=== PATIENT | female | born 1950 | race Caucasian/White ===

== ENCOUNTER 2016-11-25 18:39 | Inpatient (IN) | payer BC, OTHER ==
[~2016-11-25] VITALS: Ht 152.4 cm; Wt 100.6 kg
[~2016-11-25 18:39] MED LIST: ASPIRIN81 M2 PO; ATIVAN0.5 MG PO; ATORVASTATIN CA20 MG PO; ATORVASTATIN CA40 MG PO; CYANOCOBALAM1000 MCG PO; CYMBALTA60 MG PO; DITROPAN XL10 MG PO; FLEXERIL5 MG PO; GLUCOPHAGE1000 MG; KETOCONAZOLE60 GM TP; LANTUS 10100 UNITS/ SC; LANTUS 3 M100 UNITS1 SC; LIPITOR10 MG; LISINOPRIL5 MG PO; LORAZEPAM PO; LORAZEPAM0.5 MG PO; LOW DOSE ASPIRI81 M1 PO; METFORMIN HCL1000 MG PO; NOHOMEMEDS; NOVOLOG 10100 UNITS/ SC; NOVOLOG PE100 UNITS/ SC; OXYBUTYNIN CHLO10 MG PO; PANTOPRAZOLE SO20 MG PO; PANTOPRAZOLE SO40 MG PO; PERCOCET 5/31 TABLET PO; RANITIDINE HCL150 M1 PO; REGLAN10 MG PO; SPIRIVA1 INHALATI IH; VITAMIN D-32000 UNI1 PO; VITAMIN D-32000 UNIT PO; ZOFRAN4 MG PO
[2016-11-25 19:14] LABS: MCH 29.7 PG (29.0-34.0); MCHC 35.4 G/DL (30.0-36.0); MCV 83.9 FL (83-99); MEAN PLAT.VOLUME 10.4 uM^3 (9.5-12.4); PLATELET COUNT 225 K/uL (156-360); RBC DIS.WIDTH-CV 12.4 % (11.8-14.6); RBC DIS.WIDTH-SD 37.5 % (39-53); RED BLOOD COUNT 5.72 M/uL (3.80-5.20); WHITE BLOOD COUNT 11.8 K/uL (4.1-10.2)
[2016-11-25 19:24] LABS: CHLORIDE 98 mEq/L (99-109); POTASSIUM 4.1 mEq/L (3.7-5.4); SODIUM 134 mEq/L (136-147)
[2016-11-25 19:26] LABS: GLUCOSE 375 mg/dL (70-99)
[2016-11-25 19:27] LABS: ANION GAP 13 MEQ/L (2-14)
[2016-11-25 19:28] LABS: TOTAL BILIRUBIN 0.9 mg/dL (0.0-1.0)
[2016-11-25 19:29] LABS: ALKALINE PHOSPHATASE 171 IU/L (3-129)
[2016-11-25 19:30] LABS: GFR ESTIMATE (CALCULATED) > 59 mL/min/
[2016-11-25 19:31] LABS: UREA NITROGEN (BUN) 15 mg/dL (9-23)
[2016-11-25 20:55] LABS: TROP-I INTERPRETATION NEGATIVE; TROPONIN-I < 0.01 ng/mL (0.0-0.30)
[2016-11-25 21:03] LABS: ADD MIUA? YES; BILIRUBIN NEGATIVE; BLOOD LARGE; COLOR DK YELLOW ((YELLOW)); GLUCOSE (STRIP) >=1000; KETONES 15; LEUKOCYTES NEGATIVE; NITRITE POSITIVE; PROTEIN (STRIP) 30; SPECIFIC GRAVITY 1.031 (1.000-1.030); UROBILINOGEN 0.2 MG/DL (0.2-1.0)
[2016-11-25 21:28] LABS: EPITHELIAL CELLS 1+; RED BLOOD CELLS TNTC /HPF (0-5); WHITE BLOOD CELLS 0-5 /HPF (0-5)
[2016-11-25 21:29] LABS: BACTERIA 4+; CASTS NONE SEEN /LPF; CRYSTALS NONE SEEN; MUCUS NONE SEEN; UCUL ADDED? YES
[2016-11-25] MEDS ORDERED: ATORVASTATIN CA80 MG PO (23:28)
[2016-11-25] MEDS ORDERED: NOVOLOG PE100 UNITS/ SC (23:29)
[2016-11-25] MEDS ORDERED: DICYCLOMINE HCL20 MG PO (23:29)
[2016-11-25] MEDS ORDERED: PROTONIX40 MG PO (23:30)
[2016-11-25] MEDS ORDERED: OXYBUTYNIN CHLO10 MG PO (23:30)
[2016-11-25] MEDS ORDERED: LISINOPRIL5 MG PO (23:30)
[2016-11-25] MEDS ORDERED: METFORMIN HCL1000 MG PO (23:30)
[2016-11-25] MEDS ORDERED: PRIMIDONE50 MG PO (23:31)
[2016-11-25] MEDS ORDERED: KENALOG,ARISTOC15 G2 TP (23:32)
[2016-11-25] MEDS ORDERED: LANTUS 10100 UNITS/ SC (23:58)
[2016-11-26] VITALS (7 sets, daily range): BP systolic 101–118; BP diastolic 59–77
[2016-11-26 01:02] LABS: AMYLASE 23 IU/L (1-118)
[2016-11-26 01:11] LABS: LIPASE 21 U/L (1.0-51.0)
[2016-11-26 06:20] LABS: EOSINOPHIL (%) 0 % (0-5); HEMATOCRIT 46.5 % (36.0-46.0); IMMATURE GRANULOCYTE (%) 0.2 % (0.0-0.7); MEAN PLAT.VOLUME 11.1 uM^3 (9.5-12.4); MONOCYTE COUNT 0.4 K/uL (0-0.8); NEUTROPHIL (%) 89.2 % (45-76); NEUTROPHIL COUNT 11.9 K/uL (1.8-6.4); PLATELET COUNT 197 K/uL (156-360); RBC DIS.WIDTH-CV 12.6 % (11.8-14.6); RBC DIS.WIDTH-SD 40.3 % (39-53); RED BLOOD COUNT 5.26 M/uL (3.80-5.20); WHITE BLOOD COUNT 13.3 K/uL (4.1-10.2)
[2016-11-26 06:35] LABS: MCV 88.4 FL (83-99)
[2016-11-26 06:41] LABS: ALKALINE PHOSPHATASE 159 IU/L (3-129); ANION GAP 12 MEQ/L (2-14); CHLORIDE 99 MEQ/L (99-109); GFR ESTIMATE (CALCULATED) > 59 mL/min/; POTASSIUM 4.8 MEQ/L (3.7-5.4); SAMPLE HEMOLYSIS CHECK 0; SAMPLE ICTERIC CHECK 0; SAMPLE LIPEMIA CHECK 0; SODIUM 134 MEQ/L (136-147)
[2016-11-26 06:50] LABS: GLUCOSE 444 mg/dL (70-99)
[2016-11-26 06:53] LABS: UREA NITROGEN (BUN) 16 mg/dL (9-23)
[2016-11-26 09:56] LABS: POINT-OF-CARE METER ID UU13113807; POINT-OF-CARE USER ID 606021404
[2016-11-26 17:08] LABS: POINT-OF-CARE METER ID UU13113807; POINT-OF-CARE USER ID 606021404
[2016-11-26 21:18] LABS: POINT-OF-CARE METER ID UU13113807
[2016-11-27 03:20] LABS: POINT-OF-CARE METER ID UU13113807
[2016-11-27 05:43] VITALS: BP 103/61
[2016-11-27 07:01] VITALS: BP 98/58
[2016-11-27 07:08] LABS: HEMATOCRIT 41.8 % (36.0-46.0); MCH 30.8 PG (29.0-34.0); MCHC 34.9 G/DL (30.0-36.0); MCV 88.2 FL (83-99); MEAN PLAT.VOLUME 11.6 uM^3 (9.5-12.4); PLATELET COUNT 184 K/uL (156-360); RBC DIS.WIDTH-CV 12.4 % (11.8-14.6); RED BLOOD COUNT 4.74 M/uL (3.80-5.20); WHITE BLOOD COUNT 13.1 K/uL (4.1-10.2)
[2016-11-27 07:34] LABS: ANION GAP 10 MEQ/L (2-14); CHLORIDE 102 MEQ/L (99-109); POTASSIUM 4.2 MEQ/L (3.7-5.4); SAMPLE HEMOLYSIS CHECK 0; SAMPLE ICTERIC CHECK 0; SAMPLE LIPEMIA CHECK 0; SODIUM 133 MEQ/L (136-147)
[2016-11-27 07:39] LABS: GFR ESTIMATE (CALCULATED) > 59 mL/min/; GLUCOSE 242 mg/dL (70-99); UREA NITROGEN (BUN) 20 mg/dL (9-23)
[2016-11-27 10:21] LABS: TROP-I INTERPRETATION NEGATIVE; TROPONIN-I < 0.01 ng/mL (0.0-0.30)
[2016-11-27 12:32] LABS: INTER. NORMALIZED RATIO 1.1; PROTHROMBIN TIME 10.9 (9.2-11.2)
[2016-11-27 13:05] LABS: POINT-OF-CARE METER ID UU13113807
[2016-11-27 15:36] VITALS: BP 94/57
[2016-11-27 16:41] LABS: POINT-OF-CARE METER ID UU13113807
[2016-11-27 22:50] VITALS: BP 117/65
[2016-11-28 04:19] LABS: POINT-OF-CARE METER ID UU14149396
[2016-11-28 07:38] LABS: POINT-OF-CARE METER ID UU14149396
[2016-11-28 07:47] VITALS: BP 112/72
[2016-11-28 11:25] LABS: POINT-OF-CARE METER ID UU14149396
[2016-11-28 15:37] VITALS: BP 119/67
[2016-11-28 19:23] VITALS: BP 126/59
[2016-11-29 00:20] VITALS: BP 149/77
[2016-11-29 04:00] VITALS: BP 140/75
[2016-11-29 07:26] VITALS: BP 122/62
[2016-11-29 15:41] VITALS: BP 132/75
[2016-11-29 23:24] VITALS: BP 146/74
[2016-11-30 08:00] VITALS: BP 141/65
[2016-11-30 09:22] VITALS: BP 135/75
[2016-11-30 09:23] VITALS: BP 133/75
[2016-11-30 09:24] VITALS: BP 108/56
[2016-11-30 09:24] LABS: HEMATOCRIT 47.6 % (36.0-46.0); MCH 29.7 PG (29.0-34.0); MCHC 33.6 G/DL (30.0-36.0); MCV 88.3 FL (83-99); MEAN PLAT.VOLUME 11.4 uM^3 (9.5-12.4); PLATELET COUNT 199 K/uL (156-360); RBC DIS.WIDTH-CV 12.7 % (11.8-14.6); RBC DIS.WIDTH-SD 40.4 % (39-53); RED BLOOD COUNT 5.39 M/uL (3.80-5.20)
[2016-11-30 09:27] LABS: D-DIMER ELISA 0.51 mg/L FEU (< 0.57)
[2016-11-30 09:28] LABS: WHITE BLOOD COUNT 9.1 K/uL (4.1-10.2)
[2016-11-30 09:53] LABS: ALKALINE PHOSPHATASE 130 IU/L (3-129); ANION GAP 8 MEQ/L (2-14); CHLORIDE 97 MEQ/L (99-109); GFR ESTIMATE (CALCULATED) > 59 mL/min/; GLUCOSE 295 mg/dL (70-99); POTASSIUM 4.5 MEQ/L (3.7-5.4); SAMPLE HEMOLYSIS CHECK 0; SAMPLE ICTERIC CHECK 0; SAMPLE LIPEMIA CHECK 0; SODIUM 132 MEQ/L (136-147); UREA NITROGEN (BUN) 18 mg/dL (9-23)
[2016-11-30 09:54] LABS: TOTAL BILIRUBIN 0.5 MG/DL (0.0-1.0)
[2016-11-30 10:18] LABS: POINT-OF-CARE METER ID UU13113807
[2016-11-30 10:45] LABS: POINT-OF-CARE METER ID UU13113807; POINT-OF-CARE USER ID 606021404
[2016-11-30] MEDS ORDERED: NICOTINE PATCH1 EAC2 TD (14:04)
[2016-11-30] MEDS ORDERED: ADVAIR 250/501 DISK IH (14:07)
[2016-11-30] MEDS ORDERED: VENTOLIN HFA18 GM IH (14:07)
[2016-11-30] MEDS ORDERED: SPIRIVA1 INHALATI IH (14:07)
[2016-11-30] MEDS ORDERED: CEFTIN500 MG PO (14:13)
[2016-11-30] MEDS ORDERED: PREDNISONE10 MG PO (14:14)
[2016-11-30 16:36] VITALS: BP 148/74
== END 2016-11-30 16:57 | disposition home or self-care (01) | DRG 191 ==
LOC: EME 18:39 → EDOF 11-26 00:03 → 2EAST 11-26 00:03 → 4SOUTH 11-26 00:03 → 2EAST 11-28 15:00
PROVIDERS: Hospitalist; Internal Medicine; Physician Assistant Medical; Radiology Diagnostic Radiology
DX: J44.1 Chronic obstructive pulmonary disease with (acute) exacerbation (principal); N30.00 Acute cystitis without hematuria; E87.1 Hypo-osmolality and hyponatremia; Z68.41 Body mass index [BMI] 40.0-44.9, adult; R10.9 Unspecified abdominal pain; R09.02 Hypoxemia; R30.0 Dysuria; E11.65 Type 2 diabetes mellitus with hyperglycemia; E66.01 Morbid (severe) obesity due to excess calories; Z71.6 Tobacco abuse counseling; K59.00 Constipation, unspecified; G89.29 Other chronic pain; I10 Essential (primary) hypertension; E78.5 Hyperlipidemia, unspecified; K21.9 Gastro-esophageal reflux disease without esophagitis; F17.210 Nicotine dependence, cigarettes, uncomplicated; E78.00 Pure hypercholesterolemia, unspecified; G47.33 Obstructive sleep apnea (adult) (pediatric); R91.1 Solitary pulmonary nodule; B96.20 Unspecified Escherichia coli [E. coli] as the cause of diseases classified elsewhere; F32.9 Major depressive disorder, single episode, unspecified; Z79.4 Long term (current) use of insulin
CPT/HCPCS: 70450; 71010; 71250; 74177; 80048; 80053; 81003; 82150; 82565; 82948; 83690; 84484; 84520; 85025; 85027; 85379; 85610; 85730; 87077; 87086; 87186; 93005; 93970; 94640; 94640 76; 94760; 94799; 99202; 99281; 99285; J0696; J1644; J1815; J2270; J2405; J2920; J2930; J7030; J7050; S0028

== ENCOUNTER → 2016-12-28 | Outpatient (CLI) | payer BC, OTHER ==
[~2016-12-28] MED LIST changes: +ADVAIR 250/501 DISK IH; +ATORVASTATIN CA80 MG PO; +AZITHROMYCIN500 M1 PO; +BENTYL20 MG PO; +CEFTIN500 MG PO; +DELTASONE20 M1 PO; +DICYCLOMINE HCL20 MG PO; +IPRATR-ALBUTEROL3 ML IH; +KENALOG,ARISTOC15 G2 TP; +LIPITOR80 MG PO; +MYSOLINE50 MG PO; +NICOTINE PATCH1 EAC2 TD; +PREDNISONE10 MG PO; +PREDNISONE20 MG PO; +PRIMIDONE50 MG PO; +PROTONIX40 MG PO; +SIMVASTATIN20 MG PO; +VENTOLIN HFA18 GM IH; +ZESTRIL5 MG PO
[2016-12-28 09:32] LABS: PROTHROMBIN TIME 10.6 (9.2-11.2); PTT 23.9 (25-32)
[2016-12-28 09:55] LABS: HEMATOCRIT 46.9 % (36.0-46.0); MCH 29.7 PG (29.0-34.0); MCHC 35.2 G/DL (30.0-36.0); MCV 84.5 FL (83-99); PLATELET COUNT 247 K/uL (156-360); RBC DIS.WIDTH-CV 12.6 % (11.8-14.6); RED BLOOD COUNT 5.55 M/uL (3.80-5.20)
[2016-12-28 09:56] LABS: WHITE BLOOD COUNT 12.8 K/uL (4.1-10.2)
[2016-12-28 14:01] LABS: POINT-OF-CARE METER ID UU13113819
== END | disposition home or self-care (01) ==
LOC: OPR 08:39 → EDSTATUS 09:00 → OPR 09:00
PROVIDERS: Internal Medicine Pulmonary Disease; Radiology Diagnostic Radiology
PROC: 0BBD3ZX Excision of Right Middle Lung Lobe, Percutaneous Approach, Diagnostic (ICD-10-PCS; principal; 2016-12-28)
DX: C34.2 Malignant neoplasm of middle lobe, bronchus or lung (principal); K21.9 Gastro-esophageal reflux disease without esophagitis; E11.9 Type 2 diabetes mellitus without complications; G47.30 Sleep apnea, unspecified
CPT/HCPCS: 71010; 77012; 82948; 85027; 85610; 85730; 88305; 88341 TC; 88342 TC; J3010

== ENCOUNTER 2017-01-24 15:44 | Emergency (ER) | payer BC, OTHER ==
[~2017-01-24] VITALS: Ht 152.4 cm; Wt 94.3 kg
[2017-01-24 17:02] LABS: HEMATOCRIT 45.9 % (36.0-46.0); MCH 29.5 PG (29.0-34.0); MCV 86.9 FL (83-99); MEAN PLAT.VOLUME 10.9 uM^3 (9.5-12.4); RBC DIS.WIDTH-CV 12.3 % (11.8-14.6); RBC DIS.WIDTH-SD 39.1 % (39-53); RED BLOOD COUNT 5.28 M/uL (3.80-5.20); WHITE BLOOD COUNT 6.4 K/uL (4.1-10.2)
[2017-01-24 17:03] LABS: PLATELET COUNT 243 K/uL (156-360)
[2017-01-24 17:05] LABS: CHLORIDE 96 mEq/L (99-109); POTASSIUM 3.9 mEq/L (3.7-5.4); SODIUM 132 mEq/L (136-147)
[2017-01-24 17:08] LABS: ANION GAP 14 MEQ/L (2-14)
[2017-01-24 17:09] LABS: GLUCOSE 546 mg/dL (70-99)
[2017-01-24] MEDS ORDERED: ESCITALOPRAM OX10 MG PO (17:09)
[2017-01-24 17:11] LABS: GFR ESTIMATE (CALCULATED) 59 mL/min/
[2017-01-24] MEDS ORDERED: DICYCLOMINE HCL20 MG PO (17:11)
[2017-01-24 17:12] LABS: UREA NITROGEN (BUN) 14 mg/dL (9-23)
[2017-01-24] MEDS ORDERED: LANTUS 3 M100 UNITS1 SC (17:12)
[2017-01-24 17:20] LABS: CARBON DIOXIDE (BICARBONATE) 27.4 MEQ/L (20-31)
[2017-01-24 17:23] LABS: ADD MIUA? YES; BILIRUBIN NEGATIVE; BLOOD SMALL; COLOR STRAW ((YELLOW)); GLUCOSE (STRIP) >=500; KETONES NEGATIVE; LEUKOCYTES TRACE; NITRITE NEGATIVE; PROTEIN (STRIP) NEGATIVE; UROBILINOGEN 0.2 MG/DL (0.2-1.0)
[2017-01-24 17:30] LABS: BACTERIA RARE /HPF; EPITHELIAL CELLS RARE /HPF; MUCUS TRACE /LPF; RED BLOOD CELLS 0-5 /HPF (0-5); UCUL ADDED? NO
[2017-01-24 18:37] LABS: POINT-OF-CARE METER ID UU13113702
[2017-01-24 19:25] VITALS: BP 128/82
[2017-01-25 13:27] LABS: POINT-OF-CARE METER ID UU13113778
== END 2017-01-24 19:25 | disposition home or self-care (01) ==
LOC: EME 15:44
PROVIDERS: Emergency Medicine
DX: E11.65 Type 2 diabetes mellitus with hyperglycemia (principal); J44.9 Chronic obstructive pulmonary disease, unspecified; C34.90 Malignant neoplasm of unspecified part of unspecified bronchus or lung; J45.909 Unspecified asthma, uncomplicated; E78.5 Hyperlipidemia, unspecified; I10 Essential (primary) hypertension; K21.9 Gastro-esophageal reflux disease without esophagitis; Z87.891 Personal history of nicotine dependence; Z79.4 Long term (current) use of insulin; Z79.84 Long term (current) use of oral hypoglycemic drugs
CPT/HCPCS: 71020; 80048; 81003; 82803; 82948; 85027; 93005; 99281; 99285; J7030

== ENCOUNTER 2017-02-12 09:05 | Day surgery (SDC) | payer BC, OTHER ==
[~2017-02-12] VITALS: Ht 152.4 cm; Wt 92.5 kg
[~2017-02-12 09:05] MED LIST changes: +COMBIVENT RESPIM4 GM IH; +ESCITALOPRAM OX10 MG PO; +LEXAPRO10 MG PO; +PROVENTIL,2.5 MG/3 M IH
[2017-02-12 09:38] LABS: EOSINOPHIL (%) 1.3 % (0-5); EOSINOPHIL COUNT 0.1 K/uL (0-0.3); HEMATOCRIT 46.5 % (36.0-46.0); IMMATURE GRANULOCYTE (%) 0.3 % (0.0-0.7); LYMPHOCYTE COUNT 2.5 K/uL (1.0-2.8); MCH 29.7 PG (29.0-34.0); MCHC 34.4 G/DL (30.0-36.0); MCV 86.4 FL (83-99); MEAN PLAT.VOLUME 10.1 uM^3 (9.5-12.4); MONOCYTE (%) 4.6 % (3-12); MONOCYTE COUNT 0.3 K/uL (0-0.8); NEUTROPHIL (%) 57.4 % (45-76); PLATELET COUNT 261 K/uL (156-360); RBC DIS.WIDTH-CV 12.5 % (11.8-14.6); RBC DIS.WIDTH-SD 39.1 % (39-53); RED BLOOD COUNT 5.38 M/uL (3.80-5.20); WHITE BLOOD COUNT 6.9 K/uL (4.1-10.2)
[2017-02-12 09:46] VITALS: BP 121/76
[2017-02-12 09:53] LABS: INTER. NORMALIZED RATIO 0.9; PROTHROMBIN TIME 9.6 (9.2-11.2)
[2017-02-12 10:53] LABS: ANION GAP 12 MEQ/L (2-14); CHLORIDE 99 MEQ/L (99-109); POTASSIUM 4.6 MEQ/L (3.7-5.4); SAMPLE HEMOLYSIS CHECK 0; SAMPLE ICTERIC CHECK 0; SAMPLE LIPEMIA CHECK 1; SODIUM 134 MEQ/L (136-147); TOTAL BILIRUBIN 0.5 MG/DL (0.0-1.0)
[2017-02-12 11:11] LABS: ALKALINE PHOSPHATASE 161 IU/L (3-129); GFR ESTIMATE (CALCULATED) > 59 mL/min/; UREA NITROGEN (BUN) 16 mg/dL (9-23)
[2017-02-12 11:14] LABS: GLUCOSE 458 mg/dL (70-99)
[2017-02-12] MEDS ORDERED: NORCO 5/3251 TABLET PO (13:24)
[2017-02-12] MEDS ORDERED: COLACE100 MG PO (13:24)
[2017-02-12 13:40] LABS: POINT-OF-CARE METER ID UU13113675
[2017-02-12 14:42] LABS: POINT-OF-CARE METER ID UU13113675
[2017-02-12 14:50] VITALS: BP 128/71
[2017-02-12 15:45] VITALS: BP 131/84
== END 2017-02-12 16:17 | disposition home or self-care (01) ==
LOC: SDC 09:05 → EDSTATUS 14:25 → 2SOUTH 14:25 → SDC 14:26
PROVIDERS: Thoracic Surgery (Cardiothoracic Vascular Surgery)
PROC: 07B74ZX Excision of Thorax Lymphatic, Percutaneous Endoscopic Approach, Diagnostic (ICD-10-PCS; principal; 2017-02-12)
DX: C34.2 Malignant neoplasm of middle lobe, bronchus or lung (principal); J44.9 Chronic obstructive pulmonary disease, unspecified; Z99.81 Dependence on supplemental oxygen; Z87.891 Personal history of nicotine dependence; I10 Essential (primary) hypertension; G47.33 Obstructive sleep apnea (adult) (pediatric); E78.5 Hyperlipidemia, unspecified; K21.9 Gastro-esophageal reflux disease without esophagitis; E11.9 Type 2 diabetes mellitus without complications; Z80.0 Family history of malignant neoplasm of digestive organs; Z82.3 Family history of stroke; Z83.3 Family history of diabetes mellitus; Z82.49 Family history of ischemic heart disease and other diseases of the circulatory system; Z79.82 Long term (current) use of aspirin; Z79.4 Long term (current) use of insulin
CPT/HCPCS: 80053; 82948; 85025; 85610; 86850; 86900; 86901; 88305; 94640; J0131; J0330; J0690; J2250; J2405; J2710; J3010

== ENCOUNTER 2017-02-26 12:22 | Inpatient (IN) | payer BC, OTHER ==
[~2017-02-26] VITALS: Ht 152.4 cm; Wt 92.7 kg
[~2017-02-26 12:22] MED LIST changes: +COLACE100 MG PO; +NORCO 5/3251 TABLET PO
[2017-02-26 12:56] LABS: MCH 29.8 PG (29.0-34.0); MCHC 33.5 G/DL (30.0-36.0); MEAN PLAT.VOLUME 10.2 uM^3 (9.5-12.4); PLATELET COUNT 302 K/uL (156-360); RBC DIS.WIDTH-CV 12.2 % (11.8-14.6); RBC DIS.WIDTH-SD 39.8 % (39-53); RED BLOOD COUNT 4.83 M/uL (3.80-5.20); WHITE BLOOD COUNT 10.2 K/uL (4.1-10.2)
[2017-02-26 13:02] LABS: CHLORIDE 97 mEq/L (99-109); POTASSIUM 4.5 mEq/L (3.7-5.4); SODIUM 136 mEq/L (136-147)
[2017-02-26 13:05] LABS: ANION GAP 15 MEQ/L (2-14)
[2017-02-26 13:08] LABS: GFR ESTIMATE (CALCULATED) 53 mL/min/
[2017-02-26 13:09] LABS: UREA NITROGEN (BUN) 15 mg/dL (9-23)
[2017-02-26 13:17] LABS: GLUCOSE 425 mg/dL (70-99)
[2017-02-26 13:48] LABS: PROTHROMBIN TIME 10.2 (9.2-11.2); PTT 29.4 (25-32)
[2017-02-26 13:58] LABS: TROP-I INTERPRETATION NEGATIVE; TROPONIN-I < 0.01 ng/mL (0.0-0.30)
[2017-02-26 17:33] LABS: POINT-OF-CARE METER ID UU13113702
[2017-02-26] MEDS ORDERED: NYSTATIN15 GM TP (18:29)
[2017-02-26 19:02] LABS: POINT-OF-CARE METER ID UU13113702
[2017-02-26 23:32] VITALS: BP 93/68
[2017-02-27 00:14] LABS: POINT-OF-CARE METER ID UU13113725
[2017-02-27 02:54] VITALS: BP 123/66
[2017-02-27 06:43] LABS: HEMATOCRIT 42.2 % (36.0-46.0); MCH 29.5 PG (29.0-34.0); MCHC 33.2 G/DL (30.0-36.0); MEAN PLAT.VOLUME 9.8 uM^3 (9.5-12.4); PLATELET COUNT 289 K/uL (156-360); RBC DIS.WIDTH-CV 12.1 % (11.8-14.6); RBC DIS.WIDTH-SD 39.6 % (39-53); RED BLOOD COUNT 4.74 M/uL (3.80-5.20); WHITE BLOOD COUNT 9.6 K/uL (4.1-10.2)
[2017-02-27 07:11] LABS: ANION GAP 9 MEQ/L (2-14); CHLORIDE 97 MEQ/L (99-109); GFR ESTIMATE (CALCULATED) > 59 mL/min/; POTASSIUM 4.3 MEQ/L (3.7-5.4); SAMPLE HEMOLYSIS CHECK 0; SAMPLE ICTERIC CHECK 0; SAMPLE LIPEMIA CHECK 0; SODIUM 133 MEQ/L (136-147); UREA NITROGEN (BUN) 14 mg/dL (9-23)
[2017-02-27 07:13] LABS: GLUCOSE 415 mg/dL (70-99)
[2017-02-27 07:31] VITALS: BP 85/48
[2017-02-27 11:04] VITALS: BP 131/63
[2017-02-27 11:16] LABS: POINT-OF-CARE METER ID UU13113725
[2017-02-27 13:06] LABS: ADD MIUA? YES; BILIRUBIN NEGATIVE; BLOOD SMALL; COLOR YELLOW ((YELLOW)); GLUCOSE (STRIP) >=500; KETONES NEGATIVE; LEUKOCYTES LARGE; NITRITE NEGATIVE; PROTEIN (STRIP) NEGATIVE; SPECIFIC GRAVITY 1.026 (1.000-1.030); UROBILINOGEN 0.2 MG/DL (0.2-1.0)
[2017-02-27 13:15] LABS: BACTERIA 1+ /HPF; EPITHELIAL CELLS 1+ /HPF; MUCUS TRACE /LPF; WHITE BLOOD CELLS TNTC /HPF (0-5); WHITE BLOOD CELLS CLUMP MANY /HPF (0-5)
[2017-02-27 16:18] VITALS: BP 127/72
[2017-02-27 16:39] LABS: POINT-OF-CARE METER ID UU13113725
[2017-02-27 19:28] VITALS: BP 147/72
[2017-02-27 20:54] LABS: POINT-OF-CARE METER ID UU13113725
[2017-02-27 23:23] VITALS: BP 115/59
[2017-02-28] VITALS (8 sets, daily range): BP systolic 100–137; BP diastolic 58–76
[2017-02-28 09:07] LABS: HEMATOCRIT 38.8 % (36.0-46.0); MCH 29.7 PG (29.0-34.0); MCHC 33.5 G/DL (30.0-36.0); MCV 88.6 FL (83-99); MEAN PLAT.VOLUME 9.8 uM^3 (9.5-12.4); PLATELET COUNT 270 K/uL (156-360); RBC DIS.WIDTH-SD 39.3 % (39-53); RED BLOOD COUNT 4.38 M/uL (3.80-5.20); WHITE BLOOD COUNT 8.6 K/uL (4.1-10.2)
[2017-02-28 09:30] LABS: ALKALINE PHOSPHATASE 152 IU/L (3-129); ANION GAP 8 MEQ/L (2-14); CHLORIDE 98 MEQ/L (99-109); GFR ESTIMATE (CALCULATED) > 59 mL/min/; GLUCOSE 212 mg/dL (70-99); SAMPLE HEMOLYSIS CHECK 0; SAMPLE ICTERIC CHECK 0; SAMPLE LIPEMIA CHECK 0; SODIUM 134 MEQ/L (136-147); TOTAL BILIRUBIN 0.6 MG/DL (0.0-1.0); UREA NITROGEN (BUN) 19 mg/dL (9-23)
[2017-02-28 09:53] LABS: TROP-I INTERPRETATION NEGATIVE; TROPONIN-I < 0.01 ng/mL (0.0-0.30)
[2017-02-28 11:55] LABS: POINT-OF-CARE METER ID UU13113725
[2017-02-28 16:22] LABS: POINT-OF-CARE METER ID UU13113725
[2017-03-01 03:12] VITALS: BP 116/62
[2017-03-01 07:35] VITALS: BP 120/62
[2017-03-01 10:56] LABS: ADD MIUA? YES; BILIRUBIN NEGATIVE; BLOOD MODERATE; COLOR YELLOW ((YELLOW)); GLUCOSE (STRIP) NEGATIVE; KETONES NEGATIVE; LEUKOCYTES LARGE; NITRITE NEGATIVE; PROTEIN (STRIP) NEGATIVE; SPECIFIC GRAVITY 1.006 (1.000-1.030); UROBILINOGEN 0.2 MG/DL (0.2-1.0)
[2017-03-01 11:10] VITALS: BP 123/65
[2017-03-01 11:10] LABS: BACTERIA RARE /HPF; EPITHELIAL CELLS RARE /HPF; MUCUS NONE SEEN /LPF; RED BLOOD CELLS 40-50 /HPF (0-5); WHITE BLOOD CELLS TNTC /HPF (0-5)
[2017-03-01 11:22] LABS: POINT-OF-CARE METER ID UU13113725
[2017-03-01 15:29] VITALS: BP 121/63
[2017-03-01 16:28] LABS: POINT-OF-CARE METER ID UU13113725
[2017-03-01 19:20] VITALS: BP 137/70
[2017-03-01 23:15] VITALS: BP 129/74
[2017-03-02 03:13] VITALS: BP 135/78
[2017-03-02 05:44] LABS: POINT-OF-CARE METER ID UU13113725
[2017-03-02] MEDS ORDERED: FUROSEMIDE20 MG PO (06:44)
[2017-03-02] MEDS ORDERED: CEFDINIR300 MG PO (06:45)
[2017-03-02 07:15] VITALS: BP 99/61
== END 2017-03-02 09:45 | disposition home or self-care (01) | DRG 191 ==
LOC: EME 12:22 → 5EAST 21:05 → EDOF 21:05 → 5EAST 23:21
PROVIDERS: Emergency Medicine; Internal Medicine; Nurse Practitioner Adult Health
DX: J44.1 Chronic obstructive pulmonary disease with (acute) exacerbation (principal); E78.5 Hyperlipidemia, unspecified; I10 Essential (primary) hypertension; J45.909 Unspecified asthma, uncomplicated; E66.01 Morbid (severe) obesity due to excess calories; G47.33 Obstructive sleep apnea (adult) (pediatric); Z87.891 Personal history of nicotine dependence; C34.2 Malignant neoplasm of middle lobe, bronchus or lung; E87.1 Hypo-osmolality and hyponatremia; I95.9 Hypotension, unspecified; J81.1 Chronic pulmonary edema; R09.02 Hypoxemia; Z68.39 Body mass index [BMI] 39.0-39.9, adult; E11.9 Type 2 diabetes mellitus without complications
CPT/HCPCS: 71020; 71275; 74177; 80048; 80053; 81003; 82948; 84484; 85027; 85610; 85730; 87077; 87086; 87186; 93005; 93306; 94010; 94640; 94640 76; 94660; 94667; 94668; 99281; 99285; J0696; J1650; J1815; J1940; J7030; J7050; J7512

== ENCOUNTER 2017-03-02 08:53 | Inpatient (IN) | payer BC, OTHER ==
[~2017-03-02] VITALS: Ht 152.4 cm; Wt 99.6 kg
[~2017-03-02 08:53] MED LIST changes: +CEFDINIR300 MG PO; +FUROSEMIDE20 MG PO; +NYSTATIN15 GM TP
[2017-04-06] MEDS ORDERED: LASIX20 MG PO (11:44)
[2017-04-06] MEDS ORDERED: LEXAPRO20 MG PO (11:48)
[2017-04-08 08:04] LABS: PROTHROMBIN TIME 9.9 (9.2-11.2); PTT 27.8 (25-32)
[2017-04-08 08:20] LABS: POINT-OF-CARE METER ID UU14174212
[2017-04-08 08:53] VITALS: BP 137/70
[2017-04-08 15:15] LABS: METH RESISTANT S AUREUS PCR NEGATIVE (NEGATIVE)
[2017-04-08 15:28] LABS: PROBE CHECK PASS; SPECIMEN PROCESSING CONTROL PASS
[2017-04-08 15:53] LABS: POINT-OF-CARE METER ID UU13113675
[2017-04-08 19:35] VITALS: BP 133/95
[2017-04-08 20:00] VITALS: BP 134/73
[2017-04-08 20:53] LABS: METH RESISTANT S AUREUS PCR NEGATIVE (NEGATIVE)
[2017-04-08 20:54] LABS: PROBE CHECK PASS; SPECIMEN PROCESSING CONTROL PASS
[2017-04-08 22:00] VITALS: BP 135/69
[2017-04-08 23:30] LABS: POINT-OF-CARE METER ID UU13113731
[2017-04-09] VITALS (8 sets, daily range): BP systolic 93–147; BP diastolic 52–75
[2017-04-09 06:38] LABS: HEMATOCRIT 36.3 % (36.0-46.0); MCH 30.6 PG (29.0-34.0); MCHC 33.3 G/DL (30.0-36.0); MCV 91.7 FL (83-99); MEAN PLAT.VOLUME 10.3 uM^3 (9.5-12.4); PLATELET COUNT 228 K/uL (156-360); RBC DIS.WIDTH-CV 12.5 % (11.8-14.6); RBC DIS.WIDTH-SD 41.8 % (39-53); RED BLOOD COUNT 3.96 M/uL (3.80-5.20); WHITE BLOOD COUNT 10.1 K/uL (4.1-10.2)
[2017-04-09 07:08] LABS: ANION GAP 8 MEQ/L (2-14); CHLORIDE 101 MEQ/L (99-109); GFR ESTIMATE (CALCULATED) > 59 mL/min/; GLUCOSE 197 mg/dL (70-99); POTASSIUM 4.8 MEQ/L (3.7-5.4); SAMPLE HEMOLYSIS CHECK 0; SAMPLE ICTERIC CHECK 0; SAMPLE LIPEMIA CHECK 0; SODIUM 136 MEQ/L (136-147); UREA NITROGEN (BUN) 17 mg/dL (9-23)
[2017-04-09 12:04] LABS: POINT-OF-CARE METER ID UU13113731; POINT-OF-CARE USER ID 606021424
[2017-04-09] MEDS ORDERED: LEXAPRO10 MG PO (14:59)
[2017-04-09 17:40] LABS: POINT-OF-CARE METER ID UU13113731
[2017-04-09 22:18] LABS: POINT-OF-CARE METER ID UU13113731
[2017-04-10] VITALS (10 sets, daily range): BP systolic 113–161; BP diastolic 53–123
[2017-04-10 05:47] LABS: HEMATOCRIT 33.1 % (36.0-46.0); MCH 30.2 PG (29.0-34.0); MCHC 32.6 G/DL (30.0-36.0); MCV 92.5 FL (83-99); MEAN PLAT.VOLUME 10.2 uM^3 (9.5-12.4); PLATELET COUNT 186 K/uL (156-360); RBC DIS.WIDTH-CV 12.2 % (11.8-14.6); RBC DIS.WIDTH-SD 42.1 % (39-53); RED BLOOD COUNT 3.58 M/uL (3.80-5.20); WHITE BLOOD COUNT 8.6 K/uL (4.1-10.2)
[2017-04-10 06:14] LABS: ANION GAP 8 MEQ/L (2-14); CHLORIDE 100 MEQ/L (99-109); GFR ESTIMATE (CALCULATED) > 59 mL/min/; GLUCOSE 222 mg/dL (70-99); POTASSIUM 4.3 MEQ/L (3.7-5.4); SAMPLE HEMOLYSIS CHECK 0; SAMPLE ICTERIC CHECK 0; SAMPLE LIPEMIA CHECK 0; SODIUM 136 MEQ/L (136-147); UREA NITROGEN (BUN) 13 mg/dL (9-23)
[2017-04-10 12:09] LABS: POINT-OF-CARE METER ID UU13113803
[2017-04-10 16:36] LABS: POINT-OF-CARE METER ID UU13113803
[2017-04-11] VITALS (9 sets, daily range): BP systolic 94–152; BP diastolic 52–81
[2017-04-11 05:39] LABS: HEMATOCRIT 31.8 % (36.0-46.0); MCH 30.1 PG (29.0-34.0); MCHC 32.7 G/DL (30.0-36.0); MCV 92.2 FL (83-99); MEAN PLAT.VOLUME 10.4 uM^3 (9.5-12.4); PLATELET COUNT 191 K/uL (156-360); RBC DIS.WIDTH-CV 12.1 % (11.8-14.6); RED BLOOD COUNT 3.45 M/uL (3.80-5.20); WHITE BLOOD COUNT 7.4 K/uL (4.1-10.2)
[2017-04-11 08:24] LABS: POINT-OF-CARE USER ID 606021424
[2017-04-11 11:51] LABS: POINT-OF-CARE USER ID 606021424
[2017-04-11 18:29] LABS: POINT-OF-CARE METER ID UU13113731
[2017-04-11 22:11] LABS: POINT-OF-CARE METER ID UU13113731
[2017-04-12] VITALS (7 sets, daily range): BP systolic 112–150; BP diastolic 52–75
[2017-04-12 08:51] LABS: POINT-OF-CARE METER ID UU14174217
[2017-04-12 12:24] LABS: POINT-OF-CARE METER ID UU13113803
[2017-04-12 17:13] LABS: POINT-OF-CARE METER ID UU13113803
[2017-04-12 17:51] LABS: C DIFF TOXIN NEGATIVE (NEGATIVE)
[2017-04-12 18:00] LABS: PROBE CHECK PASS; SPECIMEN PROCESSING CONTROL PASS
[2017-04-12 21:43] LABS: POINT-OF-CARE METER ID UU13113803
[2017-04-13 08:00] VITALS: BP 118/56
[2017-04-13 08:33] LABS: POINT-OF-CARE METER ID UU13113748
[2017-04-13 10:37] LABS: EOSINOPHIL (%) 0.1 % (0-5); HEMATOCRIT 34.3 % (36.0-46.0); IMMATURE GRANULOCYTE (%) 1.2 % (0.0-0.7); IMMATURE GRANULOCYTE COUNT 0.1 K/uL; INSTRUMENT ABS NEUTROPHIL CT 4.6 K/uL; LYMPHOCYTE COUNT 1.8 K/uL (1.0-2.8); MCH 30.6 PG (29.0-34.0); MCHC 33.2 G/DL (30.0-36.0); MEAN PLAT.VOLUME 10.7 uM^3 (9.5-12.4); MONOCYTE (%) 6.7 % (3-12); MONOCYTE COUNT 0.5 K/uL (0-0.8); NEUTROPHIL (%) 66.5 % (45-76); NEUTROPHIL COUNT 4.6 K/uL (1.8-6.4); RBC DIS.WIDTH-CV 12.3 % (11.8-14.6); RBC DIS.WIDTH-SD 40.9 % (39-53); RED BLOOD COUNT 3.73 M/uL (3.80-5.20); WHITE BLOOD COUNT 6.9 K/uL (4.1-10.2)
[2017-04-13 10:47] LABS: PLATELET COUNT 295 K/uL (156-360)
[2017-04-13 10:54] LABS: ANION GAP 10 MEQ/L (2-14); CHLORIDE 99 MEQ/L (99-109); POTASSIUM 4.4 MEQ/L (3.7-5.4); SAMPLE HEMOLYSIS CHECK 0; SAMPLE ICTERIC CHECK 0; SAMPLE LIPEMIA CHECK 0; SODIUM 138 MEQ/L (136-147)
[2017-04-13 11:09] LABS: GFR ESTIMATE (CALCULATED) > 59 mL/min/; GLUCOSE 262 mg/dL (70-99); UREA NITROGEN (BUN) 16 mg/dL (9-23)
[2017-04-13 11:44] LABS: POINT-OF-CARE METER ID UU13113748
[2017-04-13 12:00] VITALS: BP 134/62
[2017-04-13 16:00] VITALS: BP 112/62
[2017-04-13 16:41] LABS: POINT-OF-CARE METER ID UU13113748
[2017-04-13 17:50] VITALS: BP 132/62
[2017-04-13 19:19] VITALS: BP 117/59
[2017-04-14] VITALS (7 sets, daily range): BP systolic 119–141; BP diastolic 56–72
[2017-04-14 08:47] LABS: POINT-OF-CARE USER ID NUTSLF44
[2017-04-14 13:05] LABS: POINT-OF-CARE METER ID UU13113781; POINT-OF-CARE USER ID NUTSLF44
[2017-04-14 16:05] LABS: POINT-OF-CARE METER ID UU13113698
[2017-04-14 20:42] LABS: POINT-OF-CARE METER ID UU13113698
[2017-04-15 05:12] VITALS: BP 144/65
[2017-04-15 07:46] LABS: POINT-OF-CARE METER ID UU13113781
[2017-04-15 09:27] VITALS: BP 146/67
[2017-04-15] MEDS ORDERED: DOCUSATE SODIU100 MG PO (11:15)
[2017-04-15] MEDS ORDERED: LOPRESSOR25 MG PO (11:15)
[2017-04-15] MEDS ORDERED: ENDOCET 5-3251 EACH PO (11:15)
[2017-04-15] MEDS ORDERED: DIGOXIN125 MCG PO (11:15)
[2017-04-15 11:25] LABS: POINT-OF-CARE METER ID UU14174216
[2017-04-15 16:00] VITALS: BP 123/64
[2017-04-15 16:43] LABS: POINT-OF-CARE METER ID UU14174216
[2017-04-15 19:34] VITALS: BP 135/67
[2017-04-15 21:54] LABS: POINT-OF-CARE METER ID UU14174216
[2017-04-16 00:03] VITALS: BP 154/76
[2017-04-16 03:15] VITALS: BP 134/71
[2017-04-16 07:57] LABS: POINT-OF-CARE METER ID UU13113698
[2017-04-16 11:44] LABS: POINT-OF-CARE METER ID UU13113698
[2017-04-16 11:47] VITALS: BP 176/77
[2017-04-16 12:21] VITALS: BP 143/73
[2017-04-16] MEDS ORDERED: PREDNISONE10 MG PO (12:33)
== END 2017-04-16 14:24 | disposition home health service (06) | DRG 164 ==
LOC: 2SOUTH 08:53 → 4WEST 04-08 06:49 → 2SOUTH 04-08 06:49 → 4WEST 04-08 19:25 → 4EAST 04-13 17:32
PROVIDERS: Surgery; Thoracic Surgery (Cardiothoracic Vascular Surgery)
DX: C34.81 Malignant neoplasm of overlapping sites of right bronchus and lung (principal); J44.1 Chronic obstructive pulmonary disease with (acute) exacerbation; Z68.41 Body mass index [BMI] 40.0-44.9, adult; J93.9 Pneumothorax, unspecified; I10 Essential (primary) hypertension; E11.9 Type 2 diabetes mellitus without complications; E78.00 Pure hypercholesterolemia, unspecified; Z79.84 Long term (current) use of oral hypoglycemic drugs; E78.5 Hyperlipidemia, unspecified; G47.33 Obstructive sleep apnea (adult) (pediatric); J98.11 Atelectasis; K21.9 Gastro-esophageal reflux disease without esophagitis; K42.9 Umbilical hernia without obstruction or gangrene; Z79.4 Long term (current) use of insulin; Z82.49 Family history of ischemic heart disease and other diseases of the circulatory system; Z83.3 Family history of diabetes mellitus; Z87.891 Personal history of nicotine dependence; Z90.49 Acquired absence of other specified parts of digestive tract; Z90.710 Acquired absence of both cervix and uterus; E66.9 Obesity, unspecified; M19.90 Unspecified osteoarthritis, unspecified site
CPT/HCPCS: 71010; 71020; 80048; 82948; 85025; 85027; 85610; 85730; 86900; 86901; 86920; 87493; 87641; 88300; 88305; 88309; 88313; 94010; 94640; 94640 76; 94668; 94760; 94799; 97530 GO; 97530 GP; 99202; J0690; J1100; J1160; J1170; J1644; J1815; J1885; J2250; J2405; J2710; J2795; J2920; J3010; J7040; J7050; J7120; J7512

== ENCOUNTER 2017-04-18 09:21 | Emergency (ER) | payer OTHER, BC ==
[~2017-04-18] VITALS: Ht 152.4 cm; Wt 97.5 kg
[~2017-04-18 09:21] MED LIST changes: +DIGOXIN125 MCG PO; +DOCUSATE SODIU100 MG PO; +ENDOCET 5-3251 EACH PO; +LASIX20 MG PO; +LEXAPRO20 MG PO; +LOPRESSOR25 MG PO
[2017-04-18 10:40] LABS: EOSINOPHIL COUNT 0.1 K/uL (0-0.3); HEMATOCRIT 36.1 % (36.0-46.0); IMMATURE GRANULOCYTE (%) 1.4 % (0.0-0.7); IMMATURE GRANULOCYTE COUNT 0.2 K/uL; MCHC 33.2 G/DL (30.0-36.0); MCV 90.3 FL (83-99); MEAN PLAT.VOLUME 9.9 uM^3 (9.5-12.4); MONOCYTE (%) 4.6 % (3-12); MONOCYTE COUNT 0.5 K/uL (0-0.8); NEUTROPHIL (%) 46.3 % (45-76); RBC DIS.WIDTH-CV 12.5 % (11.8-14.6); RBC DIS.WIDTH-SD 40.4 % (39-53); WHITE BLOOD COUNT 10.7 K/uL (4.1-10.2)
[2017-04-18 10:42] LABS: PLATELET COUNT 402 K/uL (156-360)
[2017-04-18 10:51] LABS: CHLORIDE 98 mEq/L (99-109); POTASSIUM 3.7 mEq/L (3.7-5.4); SODIUM 137 mEq/L (136-147)
[2017-04-18 10:53] LABS: GLUCOSE 236 mg/dL (70-99)
[2017-04-18 10:55] LABS: ANION GAP 8 MEQ/L (2-14)
[2017-04-18 10:57] LABS: GFR ESTIMATE (CALCULATED) > 59 mL/min/
[2017-04-18 10:58] LABS: UREA NITROGEN (BUN) 19 mg/dL (9-23)
[2017-04-18 12:50] VITALS: BP 136/76
== END 2017-04-18 12:50 | disposition home or self-care (01) ==
LOC: EME → EDBD 09:21 → EME 09:21
PROVIDERS: Emergency Medicine
DX: Z48.813 Encounter for surgical aftercare following surgery on the respiratory system (principal); Z90.2 Acquired absence of lung [part of]; I11.0 Hypertensive heart disease with heart failure; I50.9 Heart failure, unspecified; J44.9 Chronic obstructive pulmonary disease, unspecified; E78.5 Hyperlipidemia, unspecified; F32.9 Major depressive disorder, single episode, unspecified; E11.9 Type 2 diabetes mellitus without complications; Z79.4 Long term (current) use of insulin; K21.9 Gastro-esophageal reflux disease without esophagitis; Z87.891 Personal history of nicotine dependence
CPT/HCPCS: 71010; 80048; 85025; 99281; 99285

== ENCOUNTER → 2017-06-09 | Outpatient (CLI) | payer BC, OTHER ==
[~2017-06-09] MED LIST changes: +BACTRIM,SEPT1 TABLET PO
== END | disposition home or self-care (01) ==
LOC: AMB 10:30
PROC: 0J970ZZ Drainage of Back Subcutaneous Tissue and Fascia, Open Approach (ICD-10-PCS; principal; 2017-06-09)
DX: L72.9 Follicular cyst of the skin and subcutaneous tissue, unspecified (principal)

== ENCOUNTER → 2017-07-07 | Outpatient (CLI) | payer BC, OTHER | END | disposition home or self-care (01) | LOC: AMB 07-02 08:00 | PROC: 0HB6XZZ Excision of Back Skin, External Approach (ICD-10-PCS; principal; 2017-07-07) | DX: L90.5 Scar conditions and fibrosis of skin (principal) | CPT/HCPCS: 88304 ==

== ENCOUNTER 2017-10-14 16:49 | Emergency (ER) | payer OTHER ==
[~2017-10-14] VITALS: Ht 152.4 cm; Wt 92.5 kg
[2017-10-14 17:06] LABS: POINT-OF-CARE METER ID UU13113778
[2017-10-14 17:19] LABS: EOSINOPHIL (%) 0.1 % (0-5); HEMATOCRIT 43.7 % (36.0-46.0); IMMATURE GRANULOCYTE (%) 0.5 % (0.0-0.7); IMMATURE GRANULOCYTE COUNT 0.1 K/uL; INSTRUMENT ABS NEUTROPHIL CT 7.8 K/uL; LYMPHOCYTE COUNT 1.5 K/uL (1.0-2.8); MCH 29.6 PG (29.0-34.0); MCHC 34.1 G/DL (30.0-36.0); MCV 86.7 FL (83-99); MEAN PLAT.VOLUME 10.2 uM^3 (9.5-12.4); MONOCYTE (%) 1.7 % (3-12); MONOCYTE COUNT 0.2 K/uL (0-0.8); NEUTROPHIL (%) 81.7 % (45-76); NEUTROPHIL COUNT 7.8 K/uL (1.8-6.4); PLATELET COUNT 312 K/uL (156-360); RBC DIS.WIDTH-CV 12.3 % (11.8-14.6); RBC DIS.WIDTH-SD 38.7 % (39-53); RED BLOOD COUNT 5.04 M/uL (3.80-5.20); WHITE BLOOD COUNT 9.5 K/uL (4.1-10.2)
[2017-10-14 17:27] LABS: CHLORIDE 94 mEq/L (99-109); POTASSIUM 4.5 mEq/L (3.7-5.4); SODIUM 132 mEq/L (136-147)
[2017-10-14 17:28] LABS: GLUCOSE 342 mg/dL (70-99)
[2017-10-14 17:30] LABS: ANION GAP 13 MEQ/L (2-14)
[2017-10-14 17:32] LABS: GFR ESTIMATE (CALCULATED) 59 mL/min/
[2017-10-14 17:33] LABS: UREA NITROGEN (BUN) 27 mg/dL (9-23)
[2017-10-14 17:59] LABS: ADD MIUA? YES; BILIRUBIN NEGATIVE; BLOOD SMALL; COLOR YELLOW ((YELLOW)); GLUCOSE (STRIP) >=500; KETONES NEGATIVE; LEUKOCYTES LARGE; NITRITE POSITIVE; PROTEIN (STRIP) NEGATIVE; SPECIFIC GRAVITY 1.032 (1.000-1.030); UROBILINOGEN 0.2 MG/DL (0.2-1.0)
[2017-10-14 18:12] LABS: BACTERIA 3+ /HPF; EPITHELIAL CELLS RARE /HPF; MUCUS TRACE /LPF; WHITE BLOOD CELLS TNTC /HPF (0-5)
[2017-10-14] MEDS ORDERED: PREDNISONE50 MG PO (19:05)
[2017-10-14] MEDS ORDERED: KEFLEX500 MG PO (19:05)
[2017-10-14 20:10] VITALS: BP 121/81
== END 2017-10-14 20:09 | disposition home or self-care (01) ==
LOC: EME 16:49
DX: N39.0 Urinary tract infection, site not specified (principal); J44.9 Chronic obstructive pulmonary disease, unspecified; E11.65 Type 2 diabetes mellitus with hyperglycemia; Z79.4 Long term (current) use of insulin; Z85.118 Personal history of other malignant neoplasm of bronchus and lung; Z90.2 Acquired absence of lung [part of]; E78.5 Hyperlipidemia, unspecified; Z90.49 Acquired absence of other specified parts of digestive tract; Z90.710 Acquired absence of both cervix and uterus; Z87.891 Personal history of nicotine dependence
CPT/HCPCS: 71020; 80048; 81003; 82010; 82948; 85025; 94640; 99281; 99285; J7030; J7512

== ENCOUNTER 2018-01-25 17:24 | Emergency (ER) | payer OTHER ==
[~2018-01-25] VITALS: Ht 152.4 cm; Wt 100.0 kg
[~2018-01-25 17:24] MED LIST changes: +KEFLEX500 MG PO; +PREDNISONE50 MG PO
[2018-01-25 18:17] LABS: HEMATOCRIT 42.9 % (36.0-46.0); HEMOGLOBIN 15.3 G/DL (11.9-15.5); MCH 29.9 PG (29.0-34.0); MCHC 35.7 G/DL (30.0-36.0); MCV 83.8 FL (83-99); PLATELET COUNT 263 K/uL (156-360); RBC DIS.WIDTH-SD 35.9 % (39-53); RED BLOOD COUNT 5.12 M/uL (3.80-5.20); WHITE BLOOD COUNT 8.4 K/uL (4.1-10.2)
[2018-01-25 18:26] LABS: ALBUMIN 4.5 g/dL (3.2-4.8); CHLORIDE 95 mEq/L (99-109); POTASSIUM 4.6 mEq/L (3.7-5.4); SODIUM 135 mEq/L (136-147)
[2018-01-25 18:28] LABS: GLUCOSE 346 mg/dL (70-99); TOTAL PROTEIN 8.7 g/dL (6.4-8.3)
[2018-01-25 18:30] LABS: TOTAL BILIRUBIN 0.6 mg/dL (0.0-1.0)
[2018-01-25 18:32] LABS: ALKALINE PHOSPHATASE 156 IU/L (3-129); GFR ESTIMATE (CALCULATED) 59 mL/min/
[2018-01-25 18:33] LABS: AST (GOT) 25 IU/L (2-34); UREA NITROGEN (BUN) 19 mg/dL (9-23)
[2018-01-25 18:35] LABS: ALT (GPT) 27 IU/L (3-49)
[2018-01-25 18:38] LABS: TROP-I INTERPRETATION NEGATIVE; TROPONIN-I < 0.01 ng/mL (0.0-0.30)
[2018-01-25] MEDS ORDERED: MOTRIN800 MG PO (20:12)
[2018-01-25] MEDS ORDERED: SKELAXIN800 MG PO (20:12)
[2018-01-25] MEDS ORDERED: LIDODERM 5% P1 PATCH TD (20:12)
[2018-01-25 20:30] VITALS: BP 119/84
== END 2018-01-25 20:31 | disposition home or self-care (01) ==
LOC: EME 17:24 → TRA 17:24
PROVIDERS: Nurse Practitioner Family
DX: S16.1XXA Strain of muscle, fascia and tendon at neck level, initial encounter (principal); R07.9 Chest pain, unspecified; V49.40XA Driver injured in collision with unspecified motor vehicles in traffic accident, initial encounter; Y92.410 Unspecified street and highway as the place of occurrence of the external cause; E11.9 Type 2 diabetes mellitus without complications; Z79.4 Long term (current) use of insulin; J44.9 Chronic obstructive pulmonary disease, unspecified; Z85.118 Personal history of other malignant neoplasm of bronchus and lung; Z90.49 Acquired absence of other specified parts of digestive tract; F17.200 Nicotine dependence, unspecified, uncomplicated
CPT/HCPCS: 70450; 71250; 71260; 72125; 74177; 80053; 84484; 85027; 93005; 99281; 99284; J7040